=== PATIENT | male | born 1980 | race Caucasian/White ===

== ENCOUNTER 2016-07-13 19:33 | Emergency (ER) | payer BC ==
[2016-07-13 19:33] VITALS: BMI 44.1
[2016-07-13 19:46] VITALS: BP 134/84; PULSE 90; RESP 16; TEMP 98.5
--- NOTE | 2016-07-13 20:07 | ED PDOC ---
Arrival/HPI - General Chief Complaint: Finger,Hand,&Wrist Time Seen by Provider: 07/13/16 19:49 Historian: Patient - History of Present Illness Narrative History of Present Illness (Text): 07/13/16 19:58 36yo morbidly obese male with PMhx of Diabetes and Asthma present to ED with complaint of left index pain. states he suddenly started having pain on his left index finger this evening. States he wasn't working with his hand and not sure of the cause. Came to ED for evaluation. Past Medical History - Provider Review Nursing Documentation Reviewed: Yes - Infectious Disease Hx of Infectious Diseases: None - Tetanus Immunization Tetanus Immunization: Unknown - Cardiac Hx Cardiac Disorders: No - Pulmonary Hx Asthma: Yes - Neurological Hx Neurological Disorder: No - HEENT Hx HEENT Disorder: No - Renal Hx Renal Disorder: No - Endocrine/Metabolic Hx Diabetes Mellitus Type 2: Yes - Hematological/Oncological Hx Blood Transfusions: No Hx Blood Transfusion Reaction: No - Integumentary Hx Dermatological Disorder: No - Musculoskeletal/Rheumatological Hx Musculoskeletal Disorders: No - Gastrointestinal Hx Gastrointestinal Disorders: No - Genitourinary/Gynecological Hx Genitourinary Disorders: No - Psychiatric Hx Emotional Abuse: No Hx Physical Abuse: No Hx Substance Use: No - Past Surgical History Past Surgical History: No Previous - Anesthesia Hx Anesthesia Reactions: No Hx Malignant Hyperthermia: No - Suicidal Assessment Feels Threatened In Home Enviroment: No Family/Social History - Physician Review Nursing Documentation Reviewed: Yes Family/Social History: Unknown Family HX Smoking Status: Never Smoked Hx Alcohol Use: Yes Hx Substance Use: No Hx Substance Use Treatment: No Allergies/Home Meds Allergies/Adverse Reactions: Allergies No Known Allergies Allergy (Verified 07/13/16 19:42) Home Medications: Home Meds Medication Instructions Recorded Confirmed Metformin HCl 1,000 mg PO BID 09/08/12 07/13/16 Review of Systems - Physician Review All systems were reviewed & negative as marked: Yes - Review of Systems Constitutional: Normal Eyes: Normal ENT: Normal Respiratory: Normal Cardiovascular: Normal Gastrointestinal: Normal Genitourinary Male: Normal Musculoskeletal: Arthralgias (Left 2nd finger pain) Skin: Normal Neurological: Normal Endocrine: Normal Hemo/Lymphatic: Normal Psychiatric: Normal Physical Exam Vital Signs Reviewed: Yes Vital Signs Temp Pulse Resp BP Pulse Ox 07/13/16 20:29 99 07/13/16 19:45 98.5 F 90 16 134/84 96 Temperature: Afebrile Blood Pressure: Normal Pulse: Regular Respiratory Rate: Normal Appearance: Positive for: Well-Appearing, Non-Toxic, Comfortable Pain Distress: None Mental Status: Positive for: Alert and Oriented X 3 - Systems Exam Head: Present: Atraumatic, Normocephalic Pupils: Present: PERRL Extroacular Muscles: Present: EOMI Conjunctiva: Present: Normal Mouth: Present: Moist Mucous Membranes Neck: Present: Normal Range of Motion Respiratory/Chest: Present: Clear to Auscultation, Good Air Exchange. No: Respiratory Distress, Accessory Muscle Use Cardiovascular: Present: Regular Rate and Rhythm, Normal S1, S2. No: Murmurs Abdomen: Present: Normal Bowel Sounds. No: Tenderness, Distention, Peritoneal Signs Back: Present: Normal Inspection Upper Extremity: Present: Normal Inspection, Normal ROM, NORMAL PULSES, Tenderness (2nd Left mid finger on benz aspect), Neurovascularly Intact, Capillary Refill < 2s, Other (No erythema. No crepitus. No warmth. FROM. Strenght 5/5. NVI. ). No: Cyanosis, Edema, Swelling, Erythema, Temperature Abnormalties, Deformity Lower Extremity: Present: Normal Inspection. No: Edema Neurological: Present: GCS=15, CN II-XII Intact, Speech Normal Skin: Present: Warm, Dry, Normal Color. No: Rashes Psychiatric: Present: Alert, Oriented x 3, Normal Insight, Normal Concentration Medical Decision Making ED Course and Treatment: 07/14/16 02:02 PT in ED for states history. He was NVI. Strength was 5/5. Capillary refill was less than 2. Pulse is intact. No sign of infection noted. PT was given Ibuprofen 600mg for likely tendinitis. Referred to his PMD. TRT ED for any new or worsening symptoms. - Medication Orders Current Medication Orders: Discontinued Medications Ibuprofen (Motrin Tab) 600 mg PO STAT STA Stop: 07/13/16 19:59 Last Admin: 07/13/16 20:12 Dose: 600 mg Disposition/Present on Arrival - Present on Arrival Any Indicators Present on Arrival: No History of DVT/PE: No History of Uncontrolled Diabetes: Yes Urinary Catheter: No History of Decub. Ulcer: No History Surgical Site Infection Following: None - Disposition Have Diagnosis and Disposition been Completed?: Yes Diagnosis: Finger pain Disposition: HOME/ ROUTINE Disposition Time: 20:10 Condition: STABLE Discharge Instructions (ExitCare): Arthralgia (ED) Additional Instructions: Follow up with your doctor Return to ED for any new or worsening symptoms Prescriptions: Ibuprofen [Motrin Tab] 600 mg PO Q6 #20 tab
[2016-07-13 20:29] VITALS: O2SAT 99
== END 2016-07-13 20:29 | disposition home or self-care (01) ==
LOC: ED 19:33
DX: M79.645 Pain in left finger(s) (principal)

== ENCOUNTER 2018-01-06 09:40 | Observation (INO) | payer BC, MEDICAID ==
[2018-01-06] MEDS ORDERED: Sodium Chloride 0.9% 1,000 ML IV STA (10:41)
--- NOTE | 2018-01-06 10:44 | ED PDOC ---
Arrival/HPI - General Chief Complaint: Chest Pain Time Seen by Provider: 01/06/18 10:37 Historian: Patient - History of Present Illness Narrative History of Present Illness (Text): 01/06/18 10:40 37-year-old diabetic male presents today with abdominal pain and chest pain that started around 8:00 in the morning. Patient states he developed a achy stabbing epigastric abdominal pain that radiated into the chest that woke him up from sleep. Patient states the pain lasted about 20 minutes and went away and has been intermittent since. There is no associated nausea vomiting diarrhea or constipation. Patient denies fevers or chills. Patient still describing a tightness in the chest that is nonradiating. He denies any back pain. Denies urinary symptoms. Patient states pain feels similar to a "gallbladder attack". Patient states he had his gallbladder removed 3 years ago. No medications have been taken for pain at home. No other complaints Time/Duration: Other (8am) Symptom Onset: Sudden Symptom Course: Intermittent Quality: Aching, Pressure, Stabbing Severity Level: 10 Past Medical History - Provider Review Nursing Documentation Reviewed: Yes - Travel History Have you recently traveled outside [place] w/in the past 3 mons?: No - Infectious Disease Hx of Infectious Diseases: None - Tetanus Immunization Tetanus Immunization: Unknown - Cardiac Hx Cardiac Disorders: No - Pulmonary Hx Asthma: Yes - Neurological Hx Neurological Disorder: No - HEENT Hx HEENT Disorder: No - Renal Hx Renal Disorder: No - Endocrine/Metabolic Hx Diabetes Mellitus Type 2: Yes - Hematological/Oncological Hx Blood Transfusions: No Hx Blood Transfusion Reaction: No - Integumentary Hx Dermatological Disorder: No - Musculoskeletal/Rheumatological Hx Musculoskeletal Disorders: No - Gastrointestinal Hx Gastrointestinal Disorders: No - Genitourinary/Gynecological Hx Genitourinary Disorders: No - Psychiatric Hx Emotional Abuse: No Hx Physical Abuse: No Hx Substance Use: No - Past Surgical History Past Surgical History: No Previous - Anesthesia Hx Anesthesia: Yes Hx Anesthesia Reactions: No Hx Malignant Hyperthermia: No - Suicidal Assessment Feels Threatened In Home Enviroment: No Family/Social History - Physician Review Nursing Documentation Reviewed: Yes Family/Social History: Unknown Family HX Smoking Status: Never Smoked Hx Alcohol Use: Yes Hx Substance Use: No Hx Substance Use Treatment: No Allergies/Home Meds Allergies/Adverse Reactions: Allergies No Known Allergies Allergy (Verified 07/13/16 19:42) Home Medications: Home Meds Medication Instructions Recorded Confirmed Metformin HCl 1,000 mg PO BID 09/08/12 07/13/16 Review of Systems - Review of Systems Constitutional: absent: Fatigue, Fevers ENT: absent: Sore Throat, Sinus Congestion Respiratory: absent: SOB, Cough Cardiovascular: Chest Pain (chest tightness) Gastrointestinal: Abdominal Pain. absent: Constipation, Diarrhea, Nausea, Vomiting Genitourinary Male: absent: Dysuria Musculoskeletal: absent: Arthralgias, Back Pain, Neck Pain Skin: absent: Rash, Pruritis Neurological: absent: Headache, Dizziness Psychiatric: absent: Anxiety, Depression Physical Exam Vital Signs Reviewed: Yes Finger Stick Blood Glucose: 358 - Systems Exam Head: Present: Atraumatic Mouth: Present: Moist Mucous Membranes Neck: Present: Normal Range of Motion Respiratory/Chest: Present: Clear to Auscultation, Good Air Exchange. No: Respiratory Distress, Accessory Muscle Use Cardiovascular: Present: Regular Rate and Rhythm, Normal S1, S2. No: Murmurs Abdomen: Present: Tenderness (+ epigastric tenderness), Normal Bowel Sounds. No: Peritoneal Signs, Rebound, Guarding Back: Present: Normal Inspection. No: Midline Tenderness, Paraspinal Tenderness Upper Extremity: Present: Normal ROM Lower Extremity: Present: Normal ROM Neurological: Present: GCS=15 Skin: Present: Warm, Dry, Normal Color. No: Rashes Psychiatric: Present: Alert, Oriented x 3 Medical Decision Making ED Course and Treatment: 01/06/18 10:43 Patient is nontoxic well appearing with stable vital signs presenting with chest pain and abdominal pain CBC wnl CMP glucose; 411 trop; wnl Lipase wnl ekg; normal sinus rhythm at 81 bpm normal axis normal intervals no ST elevations Urinalysis + glucose CAT scan :FINDINGS: LOWER THORAX: Unremarkable. LIVER: Unremarkable. No gross lesion or ductal dilatation. GALLBLADDER AND BILE DUCTS: Cholecystectomy. PANCREAS: Unremarkable. No gross lesion or ductal dilatation. SPLEEN: Unremarkable. ADRENALS: Unremarkable. No mass. KIDNEYS AND URETERS: Unremarkable. No hydronephrosis. No solid mass. VASCULATURE: Unremarkable. No aortic aneurysm. No aortic atherosclerotic calcification or mural plaque present. BOWEL: Diverticulosis. No obstruction. No gross mural thickening. APPENDIX: Normal appendix. PERITONEUM: Unremarkable. No free fluid. No free air. LYMPH NODES: Unremarkable. No enlarged lymph nodes. BLADDER: Unremarkable. REPRODUCTIVE: Unremarkable. BONES: No acute fracture. OTHER FINDINGS: None. IMPRESSION: Diverticulosis. Cholecystectomy. Patient reassessment: pt c/o continued chest tightness/pressure. states epigastric pain is slightly improved. asa given po regular insulin sq 6 units Discussed all results with patient in depth case discussed with dr. antonio, accepts obs status admission to tele for hyperglycemia, chest pain, abd pain, in diabetic morbidly he Smail, rule out ACS Impression: chest pain, abdominal pain admit tele obs Reassessment Condition: Re-examined, Improving,but remains with symptoms - RAD Interpretation Radiology Orders: 01/06/18 10:38 ABD & PELVIS IV CONTRAST ONLY [CT] Stat CHEST PORTABLE [RAD] Stat Disposition/Present on Arrival - Present on Arrival Any Indicators Present on Arrival: Yes History of DVT/PE: No History of Uncontrolled Diabetes: Yes Urinary Catheter: No History of Decub. Ulcer: No History Surgical Site Infection Following: None - Disposition Have Diagnosis and Disposition been Completed?: Yes Diagnosis: Chest pain, Abdominal pain, Hyperglycemia Disposition: HOSPITALIZED Disposition Time: 13:33 Patient Plan: Observation, Telemetry Condition: FAIR Discharge Instructions (ExitCare): Chest Pain (ED) Forms: [employer] (Telugu)
[2018-01-06 10:51] VITALS: RESP 18; O2SAT 98
[2018-01-06 11:12] LABS: RBC 4.81 10^6/uL (3.5-6.1); WHITE BLOOD COUNT 10.5 10^3/uL (4.5-11.0)
[2018-01-06 11:13] LABS: BASO # 0.02 K/mm3 (0.0-2.0); BASO % 0.2 % (0.0-3.0); EOS # 0.2 (0.0-0.7); EOS % 1.4 % (1.5-5.0); GRAN # 6.95 (1.4-6.5); GRAN % 66.4 % (50.0-68.0); HEMOGLOBIN 14.5 g/dL (14.0-18.0); LYMPH # 2.8 (1.2-3.4); LYMPH % 26.4 % (22.0-35.0); MEAN CELL VOLUME 90.4 fl (80.0-105.0); MEAN CORPUSCULAR HEMOGLOBIN 30.1 pg (25.0-35.0); MEAN CORPUSCULAR HGB CONC 33.3 g/dl (31.0-37.0); MEAN PLATELET VOLUME 12.5 fl (7.0-11.0); MONO # 0.6 (0.1-0.6); MONO % 5.6 % (1.0-6.0); RED CELL DISTRIBUTION WIDTH 13.3 % (11.5-14.5)
[2018-01-06 11:35] LABS: TROPONIN I < 0.01 ng/mL
[2018-01-06 11:37] LABS: ALB/GLOB RATIO 1.1 (1.1-1.8); ALT/SGPT 47 U/L (7-56); AST/SGOT 26 U/L (17-59); BLOOD UREA NITROGEN 13 mg/dL (7-21); CALCIUM 8.6 mg/dL (8.4-10.5); GFR NON-AFRICAN AMERICAN > 60; LIPASE 82 U/L (23-300)
[2018-01-06 12:58] LABS: URINE BILIRUBIN NEGATIVE (NEGATIVE); URINE BLOOD NEGATIVE (NEGATIVE); URINE GLUCOSE (UA) >=1000 mg/dL (NEGATIVE); URINE LEUKOCYTE ESTERASE NEGATIVE Leu/uL (NEGATIVE); URINE PROTEIN NEGATIVE mg/dL (<30 mg/dL); URINE UROBILINOGEN 0.2 E.U./dL (<1 E.U./dL)
[2018-01-06 13:05] LABS: URINE APPEARANCE CLEAR (CLEAR); URINE COLOR YELLOW (YELLOW)
--- NOTE | 2018-01-06 13:16 | CT ---
Date of service: 01/06/2018 PROCEDURE: CT Abdomen and Pelvis with and without intravenous contrast HISTORY: abd pain COMPARISON: None. TECHNIQUE: Axial images of the abdomen were obtained in the pre contrast, portal venous and delayed phases of enhancement. Coronal and sagittal reformats were generated. Contrast dose: Radiation dose: Total exam DLP = 1592.57 mGy-cm. This CT exam was performed using one or more of the following dose reduction techniques: Automated exposure control, adjustment of the mA and/or kV according to patient size, and/or use of iterative reconstruction technique. FINDINGS: LOWER THORAX: Unremarkable. LIVER: Unremarkable. No gross lesion or ductal dilatation. GALLBLADDER AND BILE DUCTS: Cholecystectomy. PANCREAS: Unremarkable. No gross lesion or ductal dilatation. SPLEEN: Unremarkable. ADRENALS: Unremarkable. No mass. KIDNEYS AND URETERS: Unremarkable. No hydronephrosis. No solid mass. VASCULATURE: Unremarkable. No aortic aneurysm. No aortic atherosclerotic calcification or mural plaque present. BOWEL: Diverticulosis. No obstruction. No gross mural thickening. APPENDIX: Normal appendix. PERITONEUM: Unremarkable. No free fluid. No free air. LYMPH NODES: Unremarkable. No enlarged lymph nodes. BLADDER: Unremarkable. REPRODUCTIVE: Unremarkable. BONES: No acute fracture. OTHER FINDINGS: None. IMPRESSION: Diverticulosis. Cholecystectomy.
[2018-01-06] MEDS ORDERED: Insulin Regular 1 UNITS/0.01 ML ML SC STA (13:33)
[2018-01-06] MEDS ORDERED: Dextrose 50% SYRINGE Inj (50 ml) IV PRN (14:09)
[2018-01-06] MEDS ORDERED: Albuterol-Ipratrop 3 mg / 0.5 (3 ml) UD IH PRN (14:09)
--- NOTE | 2018-01-06 14:23 | RAD ---
Date of service: 01/06/2018 HISTORY: chest pain/abd pain COMPARISON: No prior. FINDINGS: LUNGS: No active pulmonary disease. PLEURA: No significant pleural effusion identified, no pneumothorax apparent. CARDIOVASCULAR: No aortic atherosclerotic calcification present. Normal cardiac size. No pulmonary vascular congestion. OSSEOUS STRUCTURES: No significant abnormalities. VISUALIZED UPPER ABDOMEN: Normal. OTHER FINDINGS: None. IMPRESSION: No active disease.
--- NOTE | 2018-01-06 15:08 | CP.PCM.HP ---
History of Present Illness - History of Present Illness History of Present Illness: Ede Whitfield PGY2 - History and Physical for Hospitalist Service CC: Abdominal Pain HPI: 37 year old male, with a PMHx of GERD, diabetes, and asthma, who presented to the hospital with complaints of epigastric abdominal pain radiating to the chest. Patient reports waking up with sharp stabbing epigastric abdominal pain that radiated to the midsternal chest and the RUQ. Episode lasted for about 20 minutes, then spontaneously resolved. He then developed midsternal 4/10 chest tightness, worsened with arm stretching. Symptoms were not associated with exertion or position. He did not take anything to alleviate pain. Patient does note that he is employed by [employer], doing heavy lifting, but has not worked since 01/02/2018. He denies associated SOB, trauma, or similar CP in the past. Patient has similar experienced epigastric pain 2 times in the past, the most recent episode being 3 years ago during which time he had cholecystectomy performed. Patient has a history of GERD, for which he took Nexium for, however he denies recent episodes. He denies cough at night or waking up with a metallic taste in his mouth. Of note, secondary to insurance problems, patient was not taking medication for management of his diabetes for ~1 year; he resumed use of Metformin 2 weeks ago. He also has noted weight gain, but is not sure how much. He denies SOB, cough, diaphoresis, N/V/D, fever, chills, change in urination or bowels. No other acute complaints at this time. 12 point ROS is benign. PMH: GERD, Diabetes, Asthma PSHx: Cholecystectomy ( 3 years ago) SOCHx: Vapes, quit smoking 8 years ago, smoked 1 pack/day for 10 years prior to quitting; social alcohol use; cocaine and marijuana use >10 years ago. FMH: Denies significant cardiac history ALL: NKDA MEDS: Metformin 100mg BID PMD: Dr. Bills Present on Admission - Present on Admission Any Indicators Present on Admission: Yes History of Uncontrolled Diabetes: Yes Review of Systems - Review of Systems All systems: reviewed and no additional remarkable complaints except (as mentioned in HPI) Past Patient History - Infectious Disease Hx of Infectious Diseases: None - Tetanus Immunizations Tetanus Immunization: Unknown - Past Social History Smoking Status: Never Smoked - CARDIAC Hx Cardiac Disorders: No - PULMONARY Hx Asthma: Yes - NEUROLOGICAL Hx Neurological Disorder: No - HEENT Hx HEENT Problems: No - RENAL Hx Chronic Kidney Disease: No - ENDOCRINE/METABOLIC Hx Diabetes Mellitus Type 2: Yes - HEMATOLOGICAL/ONCOLOGICAL Hx Blood Transfusions: No Hx Blood Transfusion Reaction: No - INTEGUMENTARY Hx Dermatological Problems: No - MUSCULOSKELETAL/RHEUMATOLOGICAL Hx Musculoskeletal Disorders: No - GASTROINTESTINAL Hx Gastrointestinal Disorders: No - GENITOURINARY/GYNECOLOGICAL Hx Genitourinary Disorders: No - PSYCHIATRIC Hx Emotional Abuse: No Hx Physical Abuse: No Hx Substance Use: No - SURGICAL HISTORY Hx Surgeries: No - ANESTHESIA Hx Anesthesia: Yes Hx Anesthesia Reactions: No Hx Malignant Hyperthermia: No Meds Allergies/Adverse Reactions: Allergies Allergy/AdvReac Type Severity Reaction Status Date / Time No Known Allergies Allergy Verified 07/13/16 19:42 Physical Exam - Constitutional Appears: Non-toxic, No Acute Distress - Head Exam Head Exam: ATRAUMATIC, NORMOCEPHALIC - Eye Exam Eye Exam: EOMI, PERRL - ENT Exam ENT Exam: Mucous Membranes Moist - Respiratory Exam Respiratory Exam: Clear to Auscultation Bilateral, NORMAL BREATHING PATTERN - Cardiovascular Exam Cardiovascular Exam: REGULAR RHYTHM, +S1, +S2 - GI/Abdominal Exam GI & Abdominal Exam: Soft, Tenderness (mid epigastric upon consistent palpation). absent: Distended, Guarding - Extremities Exam Extremities exam: Positive for: normal inspection. Negative for: pedal edema, tenderness - Neurological Exam Neurological exam: Alert, CN II-XII Intact, Normal Gait, Oriented x3, Reflexes Normal - Psychiatric Exam Psychiatric exam: Normal Affect, Normal Mood - Skin Skin Exam: Dry, Warm Results - Vital Signs Recent Vital Signs: Last Vital Signs Temp 98.2 F 01/06/18 10:50 Pulse 70 01/06/18 10:50 Resp 18 01/06/18 10:50 BP 129/81 01/06/18 10:50 Pulse Ox 98 01/06/18 10:50 - Labs Result Diagrams: 01/06/18 11:00 01/06/18 11:00 Labs: Laboratory Results - last 24 hr 01/06/18 01/06/18 01/06/18 09:46 11:00 11:00 WBC 10.5 RBC 4.81 Hgb 14.5 Hct 43.5 MCV 90.4 MCH 30.1 MCHC 33.3 RDW 13.3 Plt Count 155 MPV 12.5 H Gran % 66.4 Lymph % (Auto) 26.4 Andrew % (Auto) 5.6 Eos % (Auto) 1.4 L Baso % (Auto) 0.2 Gran # 6.95 H Lymph # (Auto) 2.8 Andrew # (Auto) 0.6 Eos # (Auto) 0.2 Baso # (Auto) 0.02 Sodium 135 Potassium 4.0 Chloride 99 Carbon Dioxide 28 Anion Gap 12 BUN 13 Creatinine 0.7 L Est GFR ( Amer) > 60 Est GFR (Non-Af Amer) > 60 POC Glucose (mg/dL) 358 H Random Glucose 411 H* D Calcium 8.6 Total Bilirubin 0.4 AST 26 ALT 47 Alkaline Phosphatase 110 Lactate Dehydrogenase 426 Total Creatine Kinase 102 Troponin I < 0.01 Total Protein 7.5 Albumin 4.0 Globulin 3.5 Albumin/Globulin Ratio 1.1 Lipase 82 Urine Color Urine Appearance Urine pH Ur Specific [place] Urine Protein Urine Glucose (UA) Urine Ketones Urine Blood Urine Nitrate Urine Bilirubin Urine Urobilinogen Ur Leukocyte Esterase 01/06/18 12:30 WBC RBC Hgb Hct MCV MCH MCHC RDW Plt Count MPV Gran % Lymph % (Auto) Andrew % (Auto) Eos % (Auto) Baso % (Auto) Gran # Lymph # (Auto) Andrew # (Auto) Eos # (Auto) Baso # (Auto) Sodium Potassium Chloride Carbon Dioxide Anion Gap BUN Creatinine Est GFR ( Amer) Est GFR (Non-Af Amer) POC Glucose (mg/dL) Random Glucose Calcium Total Bilirubin AST ALT Alkaline Phosphatase Lactate Dehydrogenase Total Creatine Kinase Troponin I Total Protein Albumin Globulin Albumin/Globulin Ratio Lipase Urine Color Yellow Urine Appearance Clear Urine pH 6.0 Ur Specific [place] 1.015 Urine Protein Negative Urine Glucose (UA) >=1000 Urine Ketones Trace H Urine Blood Negative Urine Nitrate Negative Urine Bilirubin Negative Urine Urobilinogen 0.2 Ur Leukocyte Esterase Negative Assessment & Plan - Assessment and Plan (Free Text) Assessment: 37 year old male with past medical history of DM2 associated with poor compliance, GERD, asthma who [place] [facility] [place] with complaints of 12 hour history of epigastric abdominal pain and associated chest discomfort. Plan: Mid-epigastric pain - Etiology: GERD vs. ACS vs. pancreatitis vs. PUD vs. 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 Gregory - Date & Time Date: 01/06/18 Time: 15:07
[2018-01-06 16:30] LABS: HDL CHOLESTEROL 40 mg/dL (29-60)
[2018-01-06 16:40] LABS: LDL CHOLESTEROL 83 mg/dL (0-129)
[2018-01-06] MEDS: Insulin Lispro (HUMAlog) HIGH Coverage SC SCH (17:37)
--- NOTE | 2018-01-06 18:09 | CARD ---
APPROVED REPORT Date of service: 01/06/2018 EKG Measurement Heart [id number] <Conclusion> Normal sinus rhythm Normal ECG
[2018-01-06 19:30] VITALS: BMI 45.6
[2018-01-06] MEDS ORDERED: Pneumococcal 23-Valent Vaccine IM ONE (19:30)
[2018-01-06] MEDS ORDERED: Influenza Vaccine 60 mcg/0.5 mL SYR (4YR UP) IM ONE (19:30)
[2018-01-06] MEDS ORDERED: Insulin Detemir 100 units/ml Vial (Levemir) SC SCH (22:00)
[2018-01-06 22:50] LABS: BARBITURATES, UR NEGATIVE (NEGATIVE); BENZODIAZEPINES, UR NEGATIVE (NEGATIVE)
[2018-01-06 22:55] LABS: OPIATES, UR NEGATIVE (NEGATIVE)
[2018-01-06 22:56] LABS: PHENCYCLIDINE, UR NEGATIVE (NEGATIVE)
[2018-01-07] MEDS ORDERED: Pantoprazole 40 mg EC Tab PO SCH (06:00)
[2018-01-07 07:12] LABS: BASO # 0.03 K/mm3 (0.0-2.0); BASO % 0.3 % (0.0-3.0); EOS # 0.2 (0.0-0.7); EOS % 1.7 % (1.5-5.0); GRAN # 5.95 (1.4-6.5); GRAN % 59.9 % (50.0-68.0); HEMOGLOBIN 14.1 g/dL (14.0-18.0); LYMPH # 3.3 (1.2-3.4); LYMPH % 32.7 % (22.0-35.0); MEAN CELL VOLUME 90.3 fl (80.0-105.0); MEAN CORPUSCULAR HEMOGLOBIN 29.9 pg (25.0-35.0); MEAN CORPUSCULAR HGB CONC 33.1 g/dl (31.0-37.0); MEAN PLATELET VOLUME 11.8 fl (7.0-11.0); MONO # 0.5 (0.1-0.6); MONO % 5.4 % (1.0-6.0); RBC 4.72 10^6/uL (3.5-6.1); RED CELL DISTRIBUTION WIDTH 13.4 % (11.5-14.5); WHITE BLOOD COUNT 9.9 10^3/uL (4.5-11.0)
[2018-01-07 07:40] LABS: ALB/GLOB RATIO 1.1 (1.1-1.8); ALBUMIN 3.7 g/dL (3.0-4.8); ALT/SGPT 50 U/L (7-56); AST/SGOT 26 U/L (17-59); BLOOD UREA NITROGEN 11 mg/dL (7-21); CALCIUM 8.5 mg/dL (8.4-10.5); GFR NON-AFRICAN AMERICAN > 60
[2018-01-07] MEDS: Insulin Lispro (HUMAlog) HIGH Coverage SC SCH ×2 (08:50→12:49)
[2018-01-07 12:10] VITALS: BP 121/79; TEMP 97.7
--- NOTE | 2018-01-07 15:10 | CARD ---
APPROVED REPORT Date of service: 01/07/2018 EXAM: Two-dimensional and M-mode echocardiogram with Doppler and color Doppler. INDICATION Chest Pain 2D DIMENSIONS Left Atrium (2D)4.0 (1.6-4.0cm)IVSd1.3 (0.7-1.1cm) LVDd4.9 (3.9-5.9cm)PWd1.2 (0.7-1.1cm) LVDs3.4 (2.5-4.0cm)FS (%) 30.1 % LVEF (%)57.3 (>50%) M-Mode DIMENSIONS Aortic Root3.10 (2.2-3.7cm)Aortic Cusp Exc.2.00 (1.5-2.0cm) Aortic Valve AoV Peak Uiedlqrj927.0cm/Pam Peak GR.10mmHg Mitral Valve MV E Sxjsctyl34.4cm/sMV A Jdysjllu35.2cm/sE/A ratio1.3 TDI Lateral E' Peak V12.70cm/sMedial E' Peak V11.10cm/sE/Lateral E'6.6 E/Medial E'7.6 Pulmonary Valve PV Peak Oypbfwqr80.4cm/sPV Peak Grad.3mmHg Tricuspid Valve TR Peak [id number]/sRAP [id number] Peak Gr.25mmHg [id number] LEFT VENTRICLE The left ventricle is normal size. There is borderline concentric left ventricular hypertrophy. The left ventricular function is normal. The left ventricular ejection fraction is within the normal range. There is normal LV segmental wall motion. The left ventricular diastolic function is normal. RIGHT VENTRICLE The right ventricle is normal size. There is normal right ventricular wall thickness. Systolic function is borderline reduced. ATRIA The left atrium size is normal. The right atrium size is normal. AORTIC VALVE The aortic valve is normal in structure. No aortic regurgitation is present. There is no aortic valvular stenosis. MITRAL VALVE The mitral valve is normal in structure. There is no mitral valve regurgitation noted. There is no mitral valve stenosis. TRICUSPID VALVE The tricuspid valve is normal in structure. There is mild tricuspid regurgitation. There is mild pulmonary hypertension. PULMONIC VALVE The pulmonary valve is normal in structure. There is no pulmonic valvular regurgitation. GREAT VESSELS The aortic root is normal in size. PERICARDIAL EFFUSION There is no pericardial effusion. <Conclusion> The left ventricle is normal size. There is borderline concentric left ventricular hypertrophy. The left ventricular function is normal. The left ventricular ejection fraction is within the normal range. There is normal LV segmental wall motion. The left ventricular diastolic function is normal. There is mild tricuspid regurgitation. There is mild pulmonary hypertension.
[2018-01-07 15:45] VITALS: PULSE 94
--- NOTE | 2018-01-07 20:55 | CP.PCM.DIS ---
Provider - Provider Date of Admission: 01/06/18 13:54 Attending physician: Franklin Diaz MD Time Spent in preparation of Discharge (in minutes): 40 Hospital Course - Lab Results Lab Results: Most Recent Lab Values WBC 9.9 10^3/uL (4.5-11.0) 01/07/18 06:30 RBC 4.72 10^6/uL (3.5-6.1) 01/07/18 06:30 Hgb 14.1 g/dL (14.0-18.0) 01/07/18 06:30 Hct 42.6 % (42.0-52.0) 01/07/18 06:30 MCV 90.3 fl (80.0-105.0) 01/07/18 06:30 MCH 29.9 pg (25.0-35.0) 01/07/18 06:30 MCHC 33.1 g/dl (31.0-37.0) 01/07/18 06:30 RDW 13.4 % (11.5-14.5) 01/07/18 06:30 Plt Count 145 10^3/uL (120.0-450.0) 01/07/18 06:30 MPV 11.8 fl (7.0-11.0) H 01/07/18 06:30 Gran % 59.9 % (50.0-68.0) 01/07/18 06:30 Lymph % (Auto) 32.7 % (22.0-35.0) 01/07/18 06:30 [place] % (Auto) 5.4 % (1.0-6.0) 01/07/18 06:30 Eos % (Auto) 1.7 % (1.5-5.0) 01/07/18 06:30 Baso % (Auto) 0.3 % (0.0-3.0) 01/07/18 06:30 Gran # 5.95 (1.4-6.5) 01/07/18 06:30 Lymph # (Auto) 3.3 (1.2-3.4) 01/07/18 06:30 [place] # (Auto) 0.5 (0.1-0.6) 01/07/18 06:30 Eos # (Auto) 0.2 (0.0-0.7) 01/07/18 06:30 Baso # (Auto) 0.03 K/mm3 (0.0-2.0) 01/07/18 06:30 D-Dimer, Quantitative < 200 ng/mlDDU (0-243) 01/06/18 19:31 Sodium 137 mmol/L (132-148) 01/07/18 06:30 Potassium 3.7 mmol/L (3.6-5.0) 01/07/18 06:30 Chloride 103 mmol/L (98-107) 01/07/18 06:30 Carbon Dioxide 26 mmol/L (21-33) 01/07/18 06:30 Anion Gap 11 (10-20) 01/07/18 06:30 BUN 11 mg/dL (7-21) 01/07/18 06:30 Creatinine 0.7 mg/dl (0.8-1.5) L 01/07/18 06:30 Est GFR ( Amer) > 60 01/07/18 06:30 Est GFR (Non-Af Amer) > 60 01/07/18 06:30 POC Glucose (mg/dL) 360 mg/dL (65-110) H 01/07/18 12:16 Random Glucose 194 mg/dL (70-110) H 01/07/18 06:30 Hemoglobin A1c 13.1 % (4.2-6.5) H 01/06/18 11:06 Calcium 8.5 mg/dL (8.4-10.5) 01/07/18 06:30 Phosphorus 3.6 mg/dL (2.5-4.5) 01/07/18 06:30 Magnesium 1.7 mg/dL (1.7-2.2) 01/07/18 06:30 Total Bilirubin 0.5 mg/dL (0.2-1.3) 01/07/18 06:30 AST 26 U/L (17-59) 01/07/18 06:30 ALT 50 U/L (7-56) 01/07/18 06:30 Alkaline Phosphatase 77 U/L (38-126) 01/07/18 06:30 Lactate Dehydrogenase 426 U/L (333-699) 01/06/18 11:00 Total Creatine Kinase 102 U/L (35-230) 01/06/18 11:00 Troponin I < 0.01 ng/mL 01/06/18 23:40 Total Protein 7.0 g/dL (5.8-8.3) 01/07/18 06:30 Albumin 3.7 g/dL (3.0-4.8) 01/07/18 06:30 Globulin 3.3 gm/dL 01/07/18 06:30 Albumin/Globulin Ratio 1.1 (1.1-1.8) 01/07/18 06:30 Triglycerides 123 mg/dL (35-160) 01/06/18 11:00 Cholesterol 128 mg/dL (130-200) L 01/06/18 11:00 LDL Cholesterol Direct 83 mg/dL (0-129) 01/06/18 11:00 HDL Cholesterol 40 mg/dL (29-60) 01/06/18 11:00 Lipase 82 U/L (23-300) 01/06/18 11:00 Urine Color Yellow (YELLOW) 01/06/18 12:30 Urine Appearance Clear (CLEAR) 01/06/18 12:30 Urine pH 6.0 (4.7-8.0) 01/06/18 12:30 Ur Specific [place] 1.015 (1.005-1.035) 01/06/18 12:30 Urine Protein Negative mg/dL (<30 mg/dL) 01/06/18 12:30 Urine Glucose (UA) >=1000 mg/dL (NEGATIVE) 01/06/18 12:30 Urine Ketones Trace mg/dL (NEGATIVE) H 01/06/18 12:30 Urine Blood Negative (NEGATIVE) 01/06/18 12:30 Urine Nitrate Negative (NEGATIVE) 01/06/18 12:30 Urine Bilirubin Negative (NEGATIVE) 01/06/18 12:30 Urine Urobilinogen 0.2 E.U./dL (<1 E.U./dL) 01/06/18 12:30 Ur Leukocyte Esterase Negative Mikie/uL (NEGATIVE) 01/06/18 12:30 Urine Opiates Screen Negative (NEGATIVE) 01/06/18 21:56 Urine Methadone Screen Negative (NEGATIVE) 01/06/18 21:56 Ur Barbiturates Screen Negative (NEGATIVE) 01/06/18 21:56 Ur Phencyclidine Scrn Negative (NEGATIVE) 01/06/18 21:56 Ur Amphetamines Screen Negative (NEGATIVE) 01/06/18 21:56 U Benzodiazepines Scrn Negative (NEGATIVE) 01/06/18 21:56 U Oth Cocaine Metabols Negative (NEGATIVE) 01/06/18 21:56 U Cannabinoids Screen Negative (NEGATIVE) 01/06/18 21:56 - Hospital Course Hospital Course: HPI: Mr. Calloway is a 37 year old male, with a past medical history of GERD, diabetes, and asthma, who presented to the hospital with complaints of epigastric abdominal pain radiating to the chest. Patient reports waking up with sharp stabbing epigastric abdominal pain that radiated to the midsternal chest and the right upper quadrant. Episode lasted for about 20 minutes, then spontaneously resolved. He then developed midsternal 4/10 chest tightness, worsened with arm stretching. Symptoms were not associated with exertion or position. He did not take anything to alleviate pain. Patient does note that he is employed by [employer], doing heavy lifting, but has not worked since 01/02/2018. He denies associated SOB, trauma, or similar CP in the past. Patient has similar experienced epigastric pain 2 times in the past, the most recent episode being 3 years ago during which time he had cholecystectomy performed. Patient has a history of GERD, for which he took Nexium for, however he denies recent episodes. He denies cough at night or waking up with a metallic taste in his mouth. Of note, secondary to insurance problems, patient was not taking medication for management of his diabetes for ~1 year; he resumed use of Metformin 2 weeks ago. He also has noted weight gain, but is not sure how much. He denies shortness of breath, cough, diaphoresis, nausea/vomiting/diarrhea, fever, chills, change in urination or bowels. No other acute complaints at this time. 12 point review of systems is benign. During hospital course, serial troponins ordere were negative x3. EKG demonstrated normal sinus rhythm at 81 bpm. Chest XR demonstrated no acute findings. Lipid panel and d-dimer were both negative. CT abdomen/pelvis showed diverticulosis and cholecystectomy. Urinalysis and urine drug screen ordered were both negative. Cardiology was consulted (Dr. Doe) and Echo ordered demonstrated normal LVEF of 57.3%. Patient was cleared from Cardiology per spective with recommendation for outpatient follow up and exercise stress test. Patient's blood glucose levels were elevated during course (max 411), with HBA1C of 13.1. Patient was started on insulin sliding scale high dose and levemir 8 units qHS. Patient was medically stable for discharge, as per Dr. Gregory. Patient to take the following medications, as prescribed. Scripts have been provided. Metformin 750 mg PO twice daily Levemir 6 units twice daily Patient is instructed to follow up with his primary care provider, Dr. Bills, within 1 week of discharge for continued care and management of his glucose. He is instructed to check Patient is also given referral for cardiac followup with Dr. Doe for outpatient stress test. The following is a summary of hospital course. For full detail, please refer to EMR. - Date & Time of H&P Date of H&P: 01/07/18 Time of H&P: 20:00 Discharge Exam - Head Exam Head Exam: ATRAUMATIC, NORMAL INSPECTION, NORMOCEPHALIC - Eye Exam Eye Exam: EOMI, Normal appearance Pupil Exam: NORMAL ACCOMODATION - ENT Exam ENT Exam: Mucous Membranes Moist, Normal Exam - Neck Exam Neck exam: Full Rom, Normal Inspection - Respiratory Exam Respiratory Exam: Clear to PA & Lateral, NORMAL BREATHING PATTERN, UNREMARKABLE. absent: Accessory Muscle Use, Rhonchi, Wheezes, Respiratory Distress - Cardiovascular Exam Cardiovascular Exam: REGULAR RHYTHM, +S1, +S2 - GI/Abdominal Exam GI & Abdominal Exam: Normal Bowel Sounds, Soft, Unremarkable. absent: Distended, Firm, Guarding, Rebound, Rigid, Tenderness - Extremities Exam Extremities exam: normal capillary refill, normal inspection, pedal pulses present - Back Exam Back exam: NORMAL INSPECTION - Neurological Exam Neurological exam: Alert, CN II-XII Intact, Normal Gait, Oriented x3 - Psychiatric Exam Psychiatric exam: Normal Affect, Normal Mood - Skin Skin Exam: Dry, Intact, Normal Color, Warm Discharge Plan - Discharge Medications Prescriptions: Insulin Detemir [Levemir] 6 units SC BID #1 vial metFORMIN ER [glucoPHAGE XR] 750 mg PO BID #60 ter - Follow Up Plan Condition: FAIR Disposition: HOME/ ROUTINE Instructions: Chest Pain That Is Not Caused by the Heart (DC), Acute Abdomen (Belly Pain), Adult (DC), Diabetes Diet , Hyperglycemia, Adult (DC), Chest Pain (DC), Diabetic Ketoacidosis (DC), Managing Diabetes During Sick Days (DC), Diabetic Hyperglycemia (DC) Additional Instructions: Patient is medically stable for discharge, as per Dr. Gregory. Patient to take the following medications, as prescribed. Scripts have been provided. Metformin 750 mg PO twice daily Levemir 6 units twice daily Patient is instructed to follow up with his primary care provider, Dr. Bills, within 1 week of discharge for continued care and management of his glucose. Patient is also given referral for cardiac followup with Dr. Doe for outpatient stress test. Please return to the ED if symptoms worsen. Referrals: Elsa Bills MD [Family Provider] - Shakir Doe MD [Staff Provider] -
--- NOTE | 2018-01-08 00:55 | CON ---
DATE: 01/07/2018 REASON FOR CONSULTATION: Chest pain. HISTORY OF PRESENT ILLNESS: The patient is 37-year-old moderately obese male, who has a history of diabetes mellitus presents with epigastric discomfort radiating to the lower sternal area. The patient is unaware of any prior cardiac history. The patient denies any associated palpitation, diaphoresis or dizziness. SOCIAL HISTORY: The patient smokes electronic cigarettes and drinks socially and recently joined [employer] as a [employer] worker. PAST MEDICAL HISTORY: History of cholecystectomy and history of bronchial asthma. CURRENT MEDICATIONS: Albuterol inhaler every 2 hours p.r.n., aspirin 81 mg once a day, subcutaneous heparin 5000 units every 8 hours, Lipitor 20 mg once a day, and Protonix 40 mg once a day. PHYSICAL EXAMINATION: GENERAL: The patient is a middle-aged male, who does not appear to be in acute distress. VITAL SIGNS: Blood pressure 121/79, heart rate 90, temperature 97.7, respirations 18. HEENT: Normocephalic. CHEST: Clear. HEART: S1 and S2 regular. ABDOMEN: Soft. EXTREMITIES: No edema. LABORATORY DATA: SMA-7 is within normal limits except for glucose of 194 and creatinine 0.7. Liver enzymes are within normal limits. Hemoglobin A1c is 13.1. Total cholesterol is 128. The rest of lipid profile is within normal limits. Lipase level is within normal limits. Hemoglobin, hematocrit, white count and platelet count are within normal limits. Toxicology screen is negative. EKG revealed normal sinus rhythm at rate of 81. Echocardiographic study revealed normal left ventricular systolic function and mild pulmonary hypertension. D-dimer is within normal limits. ASSESSMENT: 1. Chest pain, myocardial infarction is ruled out. 2. Uncontrolled diabetes mellitus. 3. Colonic diverticulosis. 4. History of hyperlipidemia. 5. Moderate obesity. RECOMMENDATIONS: Continue current aspirin, subcutaneous heparin, Lipitor and oral Protonix. The patient can be discharged from the cardiac point of view to be scheduled by his primary physician for an outpatient treadmill stress test. Shakir Doe MD
== END 2018-01-07 16:25 | disposition home or self-care (01) ==
LOC: ED 09:40 → ERH 13:54 → 2RSO 16:26
PROVIDERS: ADMIT Internal Medicine; ATTEND Internal Medicine
DX: R07.89 Other chest pain (principal); K57.30 Diverticulosis of large intestine without perforation or abscess without bleeding; K21.9 Gastro-esophageal reflux disease without esophagitis; E11.65 Type 2 diabetes mellitus with hyperglycemia; E66.9 Obesity, unspecified; E78.5 Hyperlipidemia, unspecified; J45.909 Unspecified asthma, uncomplicated; F17.290 Nicotine dependence, other tobacco product, uncomplicated; Z68.42 Body mass index [BMI] 45.0-49.9, adult; Z79.4 Long term (current) use of insulin
CPT/HCPCS: 36415; 71045; 74177; 80053; 80061; 80324; 80345; 80346; 80349; 80353; 80358; 80361; 81003; 82550; 82948; 83036; 83615; 83690; 83735; 83992; 84100; 84484; 85025; 85378; 93005; 93306; 96372; 96374; 99285; C9113; G0378; J1644; J7030; Q9967